=== PATIENT | female | born 1985 | race Caucasian/White ===

== ENCOUNTER 2020-12-29 04:56 | Inpatient (IN) | payer BC, OTHER ==
[2020-12-29] MEDS ORDERED: METHYLERGONOVINE 0.2 MG/ML 1 ML AMP IM PRN (05:52)
[2020-12-29] MEDS ORDERED: TERBUTALINE 1 MG/ML VIAL SQ PRN (05:52)
[2020-12-29] MEDS ORDERED: OXYTOCIN 10 UNIT/ML 1 ML VIAL IM PRN (05:52)
[2020-12-29] MEDS ORDERED: LIDOCAINE 0.5% (PF) 5 MG/ML (50 ML SDV) SQ PRN (05:52)
[2020-12-29] MEDS ORDERED: CARBOPROST TROMETHAMINE 250 MCG/ML 1 ML AMP IM PRN (05:52)
[2020-12-29] MEDS ORDERED: OXYTOCIN 30 UNITS/500 ML NS 30 UNIT in SALINE 1 500ML.BAG IV SCH (06:00)
[2020-12-29 06:02] LABS: Basophils % (A) 0 %; Eosinophils # (A) 0.1 k/uL (0-0.7); Eosinophils % (A) 1 %; HCT 37.2 % (34.0-46.0); HGB 12.5 gm/dL (11.4-16.0); Lymphocytes % (A) 17 %; MCH 30.5 pg (25.0-35.0); MCHC 33.7 g/dL (31.0-37.0); MCV 90.5 fL (80.0-100.0); Mean Platelet Volume 7.8; Monocytes # (A) 0.5 k/uL (0-1.0); Monocytes % (A) 4 %; Neutrophils # (A) 8.7 k/uL (1.3-7.7); Neutrophils % (A) 76 %; Platelet Count 234 k/uL (150-450); RBC 4.11 m/uL (3.80-5.40); WBC 11.5 k/uL (3.8-10.6)
[2020-12-29] MEDS: LACTATED RINGERS 1,000 ML IV SCH (06:05)
--- NOTE | 2020-12-29 07:49 | P.HPOB ---
History of Present Illness H&P Date: 12/29/20 Chief Complaint: My water broke at 4:00 this morning This is a 35-year-old female 2 para 0010 EDC 12/22/2020 at 41 weeks gestation who presented with spontaneous amniorrhexis, clear fluid, at 4:00 this morning. Fetus is been active throughout the . She is having mild irregular uterine contractions. Past medical history is unremarkable. Past surgical history negative. Current medications vitamins daily, baby aspirin daily. ALLERGIES none known. Family history significant for thyroid cancer. Reproductive history missed AB 2006. Social history patient is , she is never been a smoker, she is employed, she denies alcohol or drug use. history significant for blood type B negative, rubella status immune. VDRL testing, urine culture, hepatitis B surface antigen, HIV testing, gonorrhea and chlamydia cultures, group B strep cultures all negative. One-hour Glucola 133. On exam patient is 5 foot 4 inches, 170 pounds, blood pressure 126/78, vital signs are stable and she is afebrile. The general physical exam is within normal limits. The cervix is 2 cm dilated, 60-70% effaced, -2 station, vertex presentation. Artificial amniorrhexis of a fore bag reveals clear fluid. heart rate is reassuring. Irregular mild contractions are noted. Impression: 41 week intrauterine , early labor, advanced maternal age, all signs reassuring. Plan: Oxytocin per hospital protocol. Close maternal and surveillance. Analgesic options reviewed. Anticipate normal spontaneous vaginal delivery. Review of Systems Constitutional: Reports as per HPI Past Medical History Past Medical History: No Reported History History of Any Multi-Drug Resistant Organisms: None Reported Past Surgical History: No Surgical Hx Reported Past Anesthesia/Blood Transfusion Reactions: No Reported Reaction Smoking Status: Never smoker Past Alcohol Use History: None Reported Past Drug Use History: None Reported Medications and Allergies Home Medications Medication Instructions Recorded Confirmed Type Aspirin 1 tab PO ONCE 12/29/20 12/29/20 History Pnv No.95/Ferrous Fum/Folic AC 1 tab PO ONCE 12/29/20 12/29/20 History [ Multivitamin Tablet] Allergies Allergy/AdvReac Type Severity Reaction Status Date / Time No Known Allergies Allergy Verified 12/29/20 04:59 Exam Vital Signs Temp Pulse Resp BP Pulse Ox 12/29/20 05:52 98.5 F 89 16 126/78 99 12/29/20 04:59 98.5 F 89 16 126/78 99 Intake and Output 12/28/20 12/29/20 12/29/20 22:59 06:59 14:59 Other: Weight 77.111 kg See dictation under HPI please Results Result Diagrams: 12/29/20 05:45 Abnormal Lab Results - Last 24 Hours (Table) 12/29/20 Range/Units 05:45 WBC 11.5 H (3.8-10.6) k/uL Neutrophils # 8.7 H (1.3-7.7) k/uL Assessment and Plan Assessment: 41 week intrauterine , spontaneous labor. All signs reassuring. Advanced maternal age. Plan: Oxytocin per hospital protocol. Most maternal and surveillance. Analgesic options reviewed. Anticipate normal spontaneous vaginal delivery. Time with Patient: Less than 30
[2020-12-29] MEDS ORDERED: PENICILLIN G POTASSIUM 5,000,000 UNIT in DEXTROSE 5% IN WATER 100 ML IVPB ONE ×2 (16:00)
[2020-12-29] MEDS ORDERED: CITRIC ACID-SODIUM CITRATE 15 ML CUP PO ONE (19:51)
[2020-12-29] MEDS ORDERED: NALBUPHINE 10 MG/ML (1 ML AMP) ONE (20:00)
[2020-12-29] MEDS ORDERED: KETOROLAC 15 MG/ML 1 ML VIAL ONE (20:00)
[2020-12-29] MEDS ORDERED: MORPHINE SULFATE (PF) 0.3 MG/0.3 ML SYR ONE (20:00)
[2020-12-29] MEDS ORDERED: ONDANSETRON 4 MG/2 ML VIAL ONE (20:00)
[2020-12-29] MEDS ORDERED: OXYTOCIN 30 UNITS/500 ML NS BAG IV ONE (20:00)
[2020-12-29] MEDS ORDERED: PHENYLEPHRINE-0.9% NACL SYG 1,000 MCG/10 ML SYRINGE ONE (20:00)
[2020-12-29] MEDS ORDERED: NALOXONE 0.4 MG/ML 1 ML VIAL IV PRN (20:31)
[2020-12-29] MEDS ORDERED: diphenhydrAMINE 50 MG/ML 1 ML VIAL IVP PRN ×3 (20:31→21:07)
[2020-12-29] MEDS ORDERED: KETOROLAC 15 MG/ML 1 ML VIAL IVP PRN (20:31)
[2020-12-29] MEDS ORDERED: NALBUPHINE 10 MG/ML (1 ML AMP) IV PRN (20:31)
--- NOTE | 2020-12-29 21:06 | P.OP ---
Date of Procedure: 12/29/20 Preoperative Diagnosis: 41 week intrauterine , advanced maternal age, arrest of dilatation and descent Postoperative Diagnosis: Same, left occiput transverse, nuchal cord 3, normal tubes and ovaries bilaterally, liveborn male infant Procedure(s) Performed: Primary low transverse section Implants: Anesthesia: spinal Surgeon: Cydney Dumont Youth Liaison Officer #1: Aron Peck Estimated Blood Loss (ml): 486 IV fluids (ml): 750 Urine output (ml): 200 Pathology: none sent Condition: stable Disposition: PACU Description of Procedure: At 41 weeks gestation, patient presented with spontaneous amniorrhexis. Oxytocin was started and titrated per hospital protocol. Patient became 6 cm dilated and had no further cervical change management coordinator the course of 4 hours. Decision was made to proceed with primary low transverse section. Bicitra was given, antibiotics given, abdomen and vagina prepped and draped in the usual sterile fashion. Patient is brought back to the operating room where a spinal analgesia with Duramorph is placed without difficulty per the anesthesia staff. She's placed in the dorsal supine position, Martinez catheter to direct drainage. Left lateral uterine displacement The appropriate timeout is performed to assure proper patient and procedural identification. Analgesia is checked and noted to be adequate. A low transverse skin incision is made in this is carried down through the subcutaneous tissue which is approximately 2 cm deep. Fascia is isolated and scored, extended bilaterally with curved Gottlieb scissors. Peritoneum is next i dentified and incised, there is no bowel or bladder involvement. Bladder blade is placed over the dome of the bladder and at all times the bladder is Well from the operative field to avoid bladder and/or ureteral injury. A low transverse uterine incision is made in this is extended with blunt dissection. 's head is noted to be in the left occiput transverse position. It is elevated from the pelvis. There is a nuchal cord 3 that is reduced. Patient is officially delivered of a liveborn male at 2017 hours. Umbilical cord is doubly clamped and ligated, he is handed to waiting nurses for evaluation where scores of 8 and 9 at one and 5 minutes respectively are given. Placenta is delivered manually, it is inspected and noted to be fully intact with trivascular cord. Uterus is then is externalized and massaged. It is swept clean with a sterile sponge to avoid any retained products of conception. Uterus is closed in a two-step fashion, first layer running locking with 0 Vicryl, second layer imbricated with 0 Vicryl. Bilateral tubes and ovaries appear normal to inspection. Hemostasis is excellent. Abdomen is suctioned with suction on guard posterior to the uterus. Uterus is placed gently back into the abdominal cavity. Bilateral gutters are inspected and cleaned. Uterine incision is clean and dry. Peritoneum was allowed close by secondary intention. The fascia is closed in a running stitch of 0 Vicryl suture with over ligation in the midline. Subcutaneous tissue is irrigated, clean and dry. It is reapproximated with 2-0 Vicryl in a running stitch. 4-0 undyed Monocryl issues for final skin closure in a subcuticular fashion. Steri-Strips and Mastisol are applied to the wound. All sponge needle and enhancement counts are correct. Martinez is noted to be draining clear urine. Patient is brought back to the recovery room in excellent condition with stable vital signs including blood pressure 100/52, pulse 82, 100% O2 saturation. She is requesting circumcision for her son Uriel.
[2020-12-29] MEDS ORDERED: SIMETHICONE 80 MG CHEWABLE PO PRN (21:07)
[2020-12-29] MEDS ORDERED: ONDANSETRON 4 MG/2 ML VIAL IVP PRN (21:07)
[2020-12-29] MEDS ORDERED: ZOLPIDEM 5 MG TAB PO PRN (21:07)
[2020-12-29] MEDS ORDERED: METOCLOPRAMIDE 5 MG/ML 2 ML VIAL IVP PRN (21:07)
[2020-12-29] MEDS ORDERED: HYDROmorphone 2 MG TAB PO PRN (21:07)
[2020-12-29] MEDS ORDERED: diphenhydrAMINE 50 MG CAP PO PRN (21:07)
[2020-12-29] MEDS ORDERED: diphenhydrAMINE 25 MG CAP PO PRN (21:07)
[2020-12-29] MEDS ORDERED: Rhogam IMMUNE GLOBULIN 1,500 UNIT/1 ML IM ONE (22:46)
[2020-12-30] MEDS: LACTATED RINGERS 1,000 ML IV SCH ×3 (02:34→04:21)
[2020-12-30] MEDS: PENICILLIN G POTASSIUM 2,500,000 UNIT in DEXTROSE 5% IN WATER 100 ML IVPB SCH ×2 (02:35)
[2020-12-30] MEDS: ACETAMINOPHEN TAB 500 MG TAB PO SCH ×5 (04:02→20:44)
[2020-12-30] MEDS: IBUPROFEN 600 MG TAB PO SCH ×3 (04:02→17:13)
[2020-12-30] MEDS: SENNOSIDES-DOCUSATE SODIUM 1 EACH TAB PO SCH ×2 (07:58→20:44)
--- NOTE | 2020-12-30 08:07 | P.PN ---
Subjective Progress Note Date: 12/30/20 Principal diagnosis: Doing well postoperative day #1 Slept well. Positive flatus. No complaints. Objective - Vital Signs Vital signs: Vital Signs Temp 98.5 F 12/30/20 04:00 Pulse 93 12/30/20 04:00 Resp 17 12/30/20 04:00 BP 110/72 12/30/20 04:00 Pulse Ox 99 12/30/20 04:00 Intake & Output 12/29/20 12/30/20 12/30/20 18:59 06:59 18:59 Intake Total 200 Output Total 972 Balance -772 Intake: Oral 200 Output: Estimated Blood Loss 972 Other: # Voids 2 - Constitutional General appearance: Present: average body habitus, cooperative - EENT Eyes: Present: PERRLA ENT: Present: hearing grossly normal - Respiratory Respiratory: bilateral: CTA - Cardiovascular Rhythm: regular - Integumentary Integumentary Comment(s): Incision clean and dry, intact, Steri-Strips applied. Fundus firm, midline, symmetric, 18 week size Integumentary: Present: normal - Neurologic Neurologic: Present: CNII-XII intact - Musculoskeletal Musculoskeletal: Present: gait normal, strength equal bilaterally - Psychiatric Psychiatric: Present: A&O x's 3, appropriate affect, intact judgment & insight - Labs CBC & Chem 7: 12/29/20 05:45 Assessment and Plan Assessment: Doing well postoperative day #1 Plan: Circumcision performed on her . Continue postoperative care. Advanced diet and activity. Likely discharge home tomorrow. Time with Patient: Less than 30
[2020-12-30 08:09] LABS: Basophils % (A) 0 %; Eosinophils % (A) 0 %; HCT 29.4 % (34.0-46.0); Lymphocytes % (A) 6 %; MCH 30.3 pg (25.0-35.0); MCHC 33.4 g/dL (31.0-37.0); MCV 90.6 fL (80.0-100.0); Mean Platelet Volume 7.8; Monocytes # (A) 0.6 k/uL (0-1.0); Monocytes % (A) 3 %; Neutrophils # (A) 15.3 k/uL (1.3-7.7); Neutrophils % (A) 90 %; Platelet Count 254 k/uL (150-450); RBC 3.25 m/uL (3.80-5.40); RDW 15.6 % (11.5-15.5)
[2020-12-30 08:19] LABS: HGB 9.8 gm/dL (11.4-16.0)
--- NOTE | 2020-12-30 09:33 | P.PN ---
Progress Note - Text Progress Note Date: 12/30/20 Ms. Johnston is a 35-year-old female had a history of under spinal an algesia with Astramorph 300 g for postop pain. Today patient is comfortable sitting in her bed. She has mild itching over her extremities. Per patient is tolerable. Today patient rated her pain level 2-3 out of 10 in severity. Denied any fever, drowsiness, confusion. Denied any weakness, tingling sensation in her lower extremities. Denied any bowel or bladder problems. Moving all extremities without any difficulty. Able to walk without any difficulties. Vitals: Hemodynamically stable Continue oral pain medication as per primary team.
[2020-12-31] MEDS: IBUPROFEN 600 MG TAB PO SCH ×3 (01:46→12:07)
[2020-12-31] MEDS: ACETAMINOPHEN TAB 500 MG TAB PO SCH ×2 (06:50→07:02)
--- NOTE | 2020-12-31 07:48 | P.DS ---
Providers Date of admission: 12/29/20 05:16 Expected date of discharge: 12/31/20 Attending physician: Cydney Dumont Primary care physician: Stated None Hospital Course: This is a 35-year-old female 2 para 0010 EDC 12/22/2020 who presented at 41 weeks gestation with spontaneous amniorrhexis, clear fluid. Group B strep cultures negative, rubella status immune, blood type B-. Please see dictated history and physical for details. Patient underwent arrest of dilatation and descent at 6 cm dilated. She went on to deliver via low transverse section a liveborn male infant with scores of 8 and 9 at one and 5 minutes respectively. was found to be in the left occiput transverse position with a nuchal cord 3. Surgery was otherwise unremarkable, estimated blood loss 486 mL's. Infant weighed 7 lbs. 14 oz. or 3580 g. Please see dictated operative note for details. This morning the patient is doing very well. She is voiding, ambulating, passing flatus without difficulty. Vital signs are stable and she has remained afebrile. Incision is clean and dry, intact, Steri-Strips applied. Fundus is firm, midline, symmetric, 18 week size. Extremities reveal trace edema. Circumcision on the has been performed. Patient is judged to be in very good condition for discharge home. I have written a prescription for a double electric breast pump and instructions have been reviewed. Patient will use [id number] Advil or Aleve, or Motrin as needed for pain. I've asked her to call me with any fevers shakes or chills, foul smelling or copious lochia, with the passage of large blood clots, or indeed with any difficulties or concerns, or any pain not alleviated by [id number] products. She will continue taking her vitamin daily. We have reviewed options for contraception and we will discuss this further in the office. Assessment: Doing well second day Patient Condition at Discharge: Good Plan - Discharge Summary Discharge Rx Participant: No New Discharge Prescriptions: No Action Pnv No.95/Ferrous Fum/Folic AC [ Multivitamin Tablet] 1 tab PO ONCE Aspirin 1 tab PO ONCE Discharge Medication List Aspirin 1 tab PO ONCE 12/29/20 [History] Pnv No.95/Ferrous Fum/Folic AC [ Multivitamin Tablet] 1 tab PO ONCE 12/29/20 [History] Follow up Appointment(s)/Referral(s): Cydney Dumont MD [STAFF PHYSICIAN] - 2 Weeks Discharge Disposition: HOME SELF-CARE
[2020-12-31 08:45] VITALS: BP 113/68; PULSE 116; RESP 16; TEMP 98.3
[2020-12-31] MEDS: SENNOSIDES-DOCUSATE SODIUM 1 EACH TAB PO SCH (08:46)
== END 2020-12-31 12:00 | disposition home or self-care (01) | DRG 788 ==
LOC: FBPOP 04:56 → 4FBP 05:16
PROVIDERS: ADMIT Obstetrics & Gynecology; ATTEND Obstetrics & Gynecology
PROC: 10907ZC Drainage of Amniotic Fluid, Therapeutic from Products of Conception, Via Natural or Artificial Opening (ICD-10-PCS; 2020-12-29)
PROC: 4A0HX4Z Measurement of Products of Conception, Cardiac Electrical Activity, External Approach (ICD-10-PCS; 2020-12-29)
PROC: 3E033VJ Introduction of Other Hormone into Peripheral Vein, Percutaneous Approach (ICD-10-PCS; 2020-12-29)
PROC: 10D00Z1 Extraction of Products of Conception, Low, Open Approach (ICD-10-PCS; principal; 2020-12-29 20:00)
DX: O62.0 Primary inadequate contractions (principal); O48.0 Post-term pregnancy; O69.81X0 Labor and delivery complicated by cord around neck, without compression, not applicable or unspecified; Z37.0 Single live birth; Z3A.41 41 weeks gestation of pregnancy; Z79.82 Long term (current) use of aspirin; Z87.59 Personal history of other complications of pregnancy, childbirth and the puerperium
CPT/HCPCS: 59025; 84112; 85025; 85461; 86850; 86900; 86901; 99213

== ENCOUNTER 2022-01-02 09:52 | Emergency (ER) | payer BC, OTHER ==
[2022-01-02 09:57] VITALS: TEMP 98.1
[2022-01-02] MEDS ORDERED: Rhogam IMMUNE GLOBULIN 1,500 UNIT/1 ML IM ONE (10:38)
--- NOTE | 2022-01-02 10:56 | ED ---
General Adult HPI - General Chief complaint: Vaginal Bleeding Stated complaint: Preg/Spotting blood Time Seen by Provider: 01/02/22 10:15 Source: patient, RN notes reviewed Mode of arrival: ambulatory Limitations: no limitations - History of Present Illness Initial comments: Patient is a 36 year old female presenting to the ER with a chief complaint of v aginal spotting. She first noticed it this morning around 7 am. She describes it as light brown blood with light cramping in her lower abdomen. She denies fevers, dysuria or bowel changes. She regularly visits her OB, Dr. Dumont, and her 8 week ultrasound was normal. She is not on any medications regularly but is taking a vitamin. - Related Data Home Medications Medication Instructions Recorded Confirmed Aspirin 1 tab PO ONCE 12/29/20 12/29/20 Pnv No.95/Ferrous Fum/Folic AC 1 tab PO ONCE 12/29/20 12/29/20 [ Multivitamin Tablet] Allergies Allergy/AdvReac Type Severity Reaction Status Date / Time No Known Allergies Allergy Verified 01/02/22 09:58 Review of Systems ROS Statement: Those systems with pertinent positive or pertinent negative responses have been documented in the HPI. ROS Other: All systems not noted in ROS Statement are negative. Past Medical History Past Medical History: No Reported History History of Any Multi-Drug Resistant Organisms: None Reported Past Surgical History: No Surgical Hx Reported Past Anesthesia/Blood Transfusion Reactions: No Reported Reaction Smoking Status: Never smoker Past Alcohol Use History: None Reported Past Drug Use History: None Reported General Exam Limitations: no limitations General appearance: alert, in no apparent distress Head exam: Present: atraumatic, normocephalic, normal inspection Eye exam: Present: normal appearance, PERRL, EOMI. Absent: scleral icterus, conjunctival injection, periorbital swelling ENT exam: Present: normal exam, mucous membranes moist Respiratory exam: Present: normal lung sounds bilaterally. Absent: respiratory distress, wheezes, rales, rhonchi, stridor Cardiovascular Exam: Present: regular rate, normal rhythm, normal heart sounds. Absent: systolic murmur, diastolic murmur, rubs, gallop, clicks GI/Abdominal exam: Present: soft, normal bowel sounds. Absent: distended, tenderness, guarding, rebound, rigid Extremities exam: Present: normal inspection, full ROM, normal capillary refill. Absent: tenderness, pedal edema, joint swelling, calf tenderness Back exam: Present: normal inspection Neurological exam: Present: alert, oriented X3, CN II-XII intact Psychiatric exam: Present: normal affect, normal mood Skin exam: Present: warm, dry, intact, normal color. Absent: rash Course Vital Signs 01/02/22 09:53 Temperature 98.1 F Pulse Rate 83 Respiratory 18 Rate Blood Pressure 110/72 O2 Sat by Pulse 99 Oximetry Medical Decision Making - Medical Decision Making 36-year-old female presented from for vaginal bleeding early . Ultrasound shows viable IUP 13 weeks 6 days patient does have moderate subchorionic hemorrhage causing her spotting at this time. Patient is B- blood type patient did receive RhoGAM after long discussion with the patient. Patient will be discharged stable condition with follow-up her STEEL ESTIMATOR tomorrow. - Lab Data Result diagrams: 01/02/22 10:55 01/02/22 10:55 Lab Results 01/02/22 01/02/22 01/02/22 Range/Units 10:55 10:55 10:55 WBC 7.6 (3.8-10.6) k/uL RBC 4.02 (3.80-5.40) m/uL Hgb 12.6 (11.4-16.0) gm/dL Hct 35.9 (34.0-46.0) % MCV 89.1 (80.0-100.0) fL MCH 31.2 (25.0-35.0) pg MCHC 35.0 (31.0-37.0) g/dL RDW 13.2 (11.5-15.5) % Plt Count 227 (150-450) k/uL MPV 7.0 Neutrophils % 74 % Lymphocytes % 19 % Monocytes % 5 % Eosinophils % 1 % Basophils % 0 % Neutrophils # 5.6 (1.3-7.7) k/uL Lymphocytes # 1.4 (1.0-4.8) k/uL Monocytes # 0.4 (0-1.0) k/uL Eosinophils # 0.1 (0-0.7) k/uL Basophils # 0.0 (0-0.2) k/uL Sodium 134 L (137-145) mmol/L Potassium 3.7 (3.5-5.1) mmol/L Chloride 103 (98-107) mmol/L Carbon Dioxide 23 (22-30) mmol/L Anion Gap 8 mmol/L BUN 10 (7-17) mg/dL Creatinine 0.49 L (0.52-1.04) mg/dL Est GFR (CKD-EPI)AfAm >90 (>60 ml/min/1.73 sqM) Est GFR (CKD-EPI)NonAf >90 (>60 ml/min/1.73 sqM) Glucose 81 (74-99) mg/dL Calcium 8.6 (8.4-10.2) mg/dL Urine Color Urine Appearance (Clear) Urine pH (5.0-8.0) Ur Specific [place] (1.001-1.035) Urine Protein (Negative) Urine Glucose (UA) (Negative) Urine Ketones (Negative) Urine Blood (Negative) Urine Nitrite (Negative) Urine Bilirubin (Negative) Urine Urobilinogen (<2.0) mg/dL Ur Leukocyte Esterase (Negative) Urine RBC (0-5) /hpf Urine WBC (0-5) /hpf Ur Squamous Epith Cells (0-4) /hpf Urine Bacteria (None) /hpf Urine Mucus (None) /hpf Blood Type B Negative Blood Type Recheck B Neg Bld Type Recheck Status No Antibody Screen NEGATIVE 01/02/22 Range/Units 12:32 WBC (3.8-10.6) k/uL RBC (3.80-5.40) m/uL Hgb (11.4-16.0) gm/dL Hct (34.0-46.0) % MCV (80.0-100.0) fL MCH (25.0-35.0) pg MCHC (31.0-37.0) g/dL RDW (11.5-15.5) % Plt Count (150-450) k/uL MPV Neutrophils % % Lymphocytes % % Monocytes % % Eosinophils % % Basophils % % Neutrophils # (1.3-7.7) k/uL Lymphocytes # (1.0-4.8) k/uL Monocytes # (0-1.0) k/uL Eosinophils # (0-0.7) k/uL Basophils # (0-0.2) k/uL Sodium (137-145) mmol/L Potassium (3.5-5.1) mmol/L Chloride (98-107) mmol/L Carbon Dioxide (22-30) mmol/L Anion Gap mmol/L BUN (7-17) mg/dL Creatinine (0.52-1.04) mg/dL Est GFR (CKD-EPI)AfAm (>60 ml/min/1.73 sqM) Est GFR (CKD-EPI)NonAf (>60 ml/min/1.73 sqM) Glucose (74-99) mg/dL Calcium (8.4-10.2) mg/dL Urine Color Colorless Urine Appearance Clear (Clear) Urine pH 7.5 (5.0-8.0) Ur Specific [place] 1.007 (1.001-1.035) Urine Protein Negative (Negative) Urine Glucose (UA) Negative (Negative) Urine Ketones Negative (Negative) Urine Blood Small H (Negative) Urine Nitrite Negative (Negative) Urine Bilirubin Negative (Negative) Urine Urobilinogen <2.0 (<2.0) mg/dL Ur Leukocyte Esterase Negative (Negative) Urine RBC 1 (0-5) /hpf Urine WBC 1 (0-5) /hpf Ur Squamous Epith Cells 3 (0-4) /hpf Urine Bacteria Rare H (None) /hpf Urine Mucus Rare H (None) /hpf Blood Type Blood Type Recheck Bld Type Recheck Status Antibody Screen Disposition Clinical Impression: Subchorionic hemorrhage, Disposition: HOME SELF-CARE Condition: Stable Instructions (If sedation given, give patient instructions): Subchorionic Hemorrhage (ED) Additional Instructions: Please return to the Emergency Department if symptoms worsen or any other concerns. Is patient prescribed a controlled substance at d/c from ED?: No Referrals: Morelia Perez MD [Primary Care Provider] - 1-2 days Time of Disposition: 12:05
[2022-01-02 11:13] LABS: Basophils % (A) 0 %; Eosinophils # (A) 0.1 k/uL (0-0.7); Eosinophils % (A) 1 %; HCT 35.9 % (34.0-46.0); HGB 12.6 gm/dL (11.4-16.0); Lymphocytes # (A) 1.4 k/uL (1.0-4.8); Lymphocytes % (A) 19 %; MCH 31.2 pg (25.0-35.0); MCV 89.1 fL (80.0-100.0); Monocytes # (A) 0.4 k/uL (0-1.0); Monocytes % (A) 5 %; Neutrophils # (A) 5.6 k/uL (1.3-7.7); Neutrophils % (A) 74 %; Platelet Count 227 k/uL (150-450); RBC 4.02 m/uL (3.80-5.40); RDW 13.2 % (11.5-15.5); WBC 7.6 k/uL (3.8-10.6)
[2022-01-02 11:27] LABS: African American GFR (CKD) >90 (>60 ml/min/1.73 sqM); Anion Gap 8 mmol/L; Blood Urea Nitrogen 10 mg/dL (7-17); Calcium 8.6 mg/dL (8.4-10.2); Carbon Dioxide 23 mmol/L (22-30); Chloride 103 mmol/L (98-107); Glucose 81 mg/dL (74-99); Non-African American GFR(CKD) >90 (>60 ml/min/1.73 sqM); Potassium 3.7 mmol/L (3.5-5.1); Sodium 134 mmol/L (137-145)
--- NOTE | 2022-01-02 12:10 | US ---
EXAMINATION TYPE: Transabdominal DATE OF EXAM: 01/02/2022 11:25 AM COMPARISON: NONE CLINICAL HISTORY: pain, bleeding. Cramping, light bleeding. Hx 1 C section. EXAM PERFORMED: Transabdominal (TA) EXAM MEASUREMENTS: GESTATIONAL AGE / DATING Physician Established: (13 weeks/4 days) EDC: 07/06/2022 Dates by LMP: (13 weeks/4 days) EDC: 07/06/2022 Dates by First Scan: This is first scan at this facility. Dates by Current Scan for: (13 weeks/6 days) EDC: 07/04/2022 MATERNAL ANATOMY Uterus: 15.9 x 12.2 x 7.5 cm. Right Ovary: 3.5 x 2.6 x 2.1 cm. Area of mixed echogenicity and peripheral vascularity seen as mentio atul below: 1.7 x 2.2 x 2.2 cm. Left Ovary: 3.3 x 2.2 x 1.4 cm Appears wnl. Post CDS / Adnexa: Appear wnl Presence of free fluid: No Presence of corpus luteal cyst: Area of mixed echogenicity and peripheral vascularity seen in the rig ht ovary: 1.7 x 2.2 x 2.2 cm. Presence of subchorionic bleed: Complex area seen adjacent to the gestational sac: 7.3 x 6.5 x 0.9 cm . GESTATION / SURVEY CRL: 7.76 cm (13 weeks/6 days) Yolk Sac (normal less than 6mm): Not seen Heart Rate: 154 bpm Rhythm: Normal IUP: Viable IUP Nuchal Translucency 10-14wks (normal less than 3mm): 2 mm. Age Appropriate Anatomy Cord Insertion: Limited visibility Limbs: Visualized Calvarium: Visualized Date of LMP: 09/29/2021 Beta HcG (if available): Not available IMPRESSION: 1. Single live intrauterine gestation with ultrasound age 13 weeks 6 days. 2. Moderate subchorionic hemorrhage, short-term follow-up imaging and clinical follow-up recommended .
[2022-01-02 13:02] LABS: Appearance,Urine Clear (Clear); Bacteria,Urine Rare /hpf; Bilirubin,Urine Negative (Negative); Blood,Urine Small (Negative); Color,Urine Colorless; Glucose,Urine (UA) Negative (Negative); Ketones,Urine Negative (Negative); Leukocyte Esterase,Urine Negative (Negative); Mucus,Urine Rare /hpf; Nitrite,Urine Negative (Negative); PH, Urine 7.5 (5.0-8.0); Protein,Urine Negative (Negative); RBC,Urine 1 /hpf (0-5); Specific Gravity,Urine 1.007 (1.001-1.035); Squamous Epithelial Cell,Urine 3 /hpf (0-4); Urobilinogen,Urine <2.0 mg/dL (<2.0); WBC,Urine 1 /hpf (0-5)
[2022-01-02 13:25] VITALS: BP 121/77; PULSE 75; RESP 16
== END 2022-01-02 13:17 | disposition home or self-care (01) ==
LOC: EC 09:52
DX: O20.9 Hemorrhage in early pregnancy, unspecified (principal); Z3A.13 13 weeks gestation of pregnancy
CPT/HCPCS: 36415; 86900; 86901; 80048; 85025; 86850; 81001; 76813; 76801; 99284; 96372; J2790

== ENCOUNTER 2022-07-06 09:06 | Inpatient (IN) | payer OTHER ==
[2022-07-08 15:57] VITALS: BMI 27.8
[2022-07-11] MEDS ORDERED: miSOPROStoL 200 MCG TAB PO PRN (10:34)
[2022-07-11] MEDS ORDERED: CARBOPROST TROMETHAMINE 250 MCG/ML 1 ML AMP IM PRN (10:34)
[2022-07-11] MEDS ORDERED: TRANEXAMIC ACID IN NACL,ISO-OS 1,000 MG in EMPTY BAG 1 BAG IV PRN (10:34)
[2022-07-11] MEDS ORDERED: CITRIC ACID-SODIUM CITRATE 15 ML CUP PO ONE (10:34)
[2022-07-11] MEDS ORDERED: LACTATED RINGERS 1,000 ML IV ONE (10:34)
[2022-07-11] MEDS ORDERED: METHYLERGONOVINE 0.2 MG/ML 1 ML AMP IM PRN (10:34)
[2022-07-11] MEDS ORDERED: OXYTOCIN 10 UNIT/ML 1 ML VIAL IM PRN (10:34)
[2022-07-11] MEDS ORDERED: OXYTOCIN 30 UNITS/500 ML NS 30 UNIT in SALINE 1 500ML.BAG IV SCH (10:45)
[2022-07-11 10:47] LABS: Basophils % (A) 0 %; Eosinophils % (A) 0 %; HCT 40.9 % (34.0-46.0); HGB 13.6 gm/dL (11.4-16.0); Lymphocytes # (A) 1.2 k/uL (1.0-4.8); Lymphocytes % (A) 13 %; MCH 30.7 pg (25.0-35.0); MCHC 33.2 g/dL (31.0-37.0); MCV 92.4 fL (80.0-100.0); Monocytes # (A) 0.3 k/uL (0-1.0); Monocytes % (A) 3 %; Neutrophils # (A) 7.8 k/uL (1.3-7.7); Neutrophils % (A) 82 %; Platelet Count 135 k/uL (150-450); RBC 4.43 m/uL (3.80-5.40); RDW 14.5 % (11.5-15.5); WBC 9.5 k/uL (3.8-10.6)
[2022-07-11] MEDS ORDERED: OXYTOCIN 30 UNITS/500 ML NS BAG IV ONE (12:30)
[2022-07-11] MEDS ORDERED: NALBUPHINE 10 MG/ML (10 ML MDV) ONE (12:30)
[2022-07-11] MEDS ORDERED: ePHEDrine 50 MG/ML 1 ML VIAL ONE (12:30)
[2022-07-11] MEDS ORDERED: ONDANSETRON 4 MG/2 ML VIAL ONE (12:30)
[2022-07-11] MEDS ORDERED: KETOROLAC 15 MG/ML 1 ML VIAL ONE (12:30)
[2022-07-11] MEDS ORDERED: MORPHINE SULFATE (PF) 0.3 MG/0.3 ML SYR ONE (12:30)
[2022-07-11] MEDS ORDERED: diphenhydrAMINE 50 MG/ML 1 ML VIAL IVP PRN ×3 (13:04→13:31)
[2022-07-11] MEDS ORDERED: NALOXONE 0.4 MG/ML 1 ML VIAL IV PRN (13:04)
[2022-07-11] MEDS ORDERED: ONDANSETRON 4 MG/2 ML VIAL IVP PRN (13:04)
[2022-07-11] MEDS ORDERED: MORPHINE SULFATE 2 MG/ML SYRINGE IVP PRN (13:04)
--- NOTE | 2022-07-11 13:26 | P.HPOB ---
History of Present Illness H&P Date: 07/11/22 Chief Complaint: Here for repeat low transverse section This is a 37-year-old 3 para 1011 EDC 07/06/2014 at 40-5/7 weeks' gestation who initially was contemplating , however now postdates is requesting repeat low transverse section, declining tubal ligation. Fetus is been active throughout the . Past medical history is negative. Past surgical history section 2020. Current medications baby aspirin daily, vitamin daily. ALLERGIES none known. Family history significant for thyroid cancer. Social history patient is , she has never been a smoker, she denies alcohol or drug use. history is significant for blood type B-, broke and received. Antibody screen, Pap smear, urine culture, grade strep cultures, HIV testing, hepatitis B surface antigen all negative. One-hour Glucola 100. On exam patient is 5 foot 5 inches, 168 pounds, blood pressure 110/68. The general physical exam is within normal limits. Fundus is obviously gravid with a full term , vertex presentation. Extremities are negative for edema. Chest is clear in all rodriguez. heart rate is consistent with reactive NST. Cervix is long thick and closed. Impression: 40-5/7 weeks intrauterine , previous section, requesting low transverse section repeat. Declining tubal ligation. Plan: For repeat low transverse section. Risks, benefits and alternatives all discussed. Antibiotics given. Tubal ligation offered and declined. Review of Systems Constitutional: Reports as per HPI Past Medical History Past Medical History: No Reported History History of Any Multi-Drug Resistant Organisms: None Reported Past Surgical History: Section Past Anesthesia/Blood Transfusion Reactions: No Reported Reaction Past Psychological History: No Psychological Hx Reported Smoking Status: Never smoker Past Alcohol Use History: None Reported Past Drug Use History: None Reported - Past Family History Mother Family Medical History: Thyroid Disorder Additional Family Medical History / Comment(s): thyroid CA Medications and Allergies Home Medications Medication Instructions Recorded Confirmed Type Aspirin 1 tab PO ONCE 12/29/20 07/11/22 History Pnv No.95/Ferrous Fum/Folic AC 1 tab PO ONCE 12/29/20 07/11/22 History [ Multivitamin Tablet] Allergies Allergy/AdvReac Type Severity Reaction Status Date / Time No Known Allergies Allergy Verified 07/11/22 10:48 Exam Vital Signs Temp Pulse Resp BP Pulse Ox 07/11/22 10:49 97.7 F 94 16 110/68 99 Intake and Output 07/10/22 07/11/22 07/11/22 22:59 06:59 14:59 Other: Weight 75.75 kg See dictation under HPI please Results Result Diagrams: 07/11/22 10:30 Abnormal Lab Results - Last 24 Hours (Table) 07/11/22 Range/Units 10:30 Plt Count 135 L (150-450) k/uL Neutrophils # 7.8 H (1.3-7.7) k/uL Assessment and Plan Assessment: 40-5/7 week intrauterine , here for repeat low transverse section, all signs reassuring. Declining tubal ligation, declining . Plan: For repeat low transverse section. All risks, benefits, alternatives discussed. Tubal ligation declined. Antibiotics given. Time with Patient: Less than 30
[2022-07-11] MEDS ORDERED: ZOLPIDEM 5 MG TAB PO PRN (13:31)
[2022-07-11] MEDS ORDERED: diphenhydrAMINE 50 MG CAP PO PRN (13:31)
[2022-07-11] MEDS ORDERED: METOCLOPRAMIDE 5 MG/ML 2 ML VIAL IVP PRN (13:31)
[2022-07-11] MEDS ORDERED: diphenhydrAMINE 25 MG CAP PO PRN (13:31)
--- NOTE | 2022-07-11 13:31 | P.OP ---
Date of Procedure: 07/11/22 Preoperative Diagnosis: 40-5/7 weeks intrauterine , here for repeat low transverse section, declining . Postoperative Diagnosis: Liveborn male infant, nuchal cord 2. Procedure(s) Performed: Repeat low transverse section Anesthesia: spinal Surgeon: Cydney Dumont Filter Press Tender #1: Aron Peck Estimated Blood Loss (ml): 875 IV fluids (ml): 1,400 Urine output (ml): 150 Pathology: none sent Condition: stable Disposition: PACU Operative Findings: Liveborn male , nuchal cord 2. Description of Procedure: Patient is brought to the operating suite where a spinal with Duramorph is administered without difficulty. Antibiotics are given. Abdomen is prepped and draped in usual sterile fashion. Martinez catheter to direct drainage. The appropriate timeout is performed to assure proper patient and procedural identification. Analgesia is checked and noted to be adequate. A repeat low transverse skin incision is made in this is carried down through the subcutaneous tissue to the fascia. Fascia is isolated, scored, extended bilaterally with curved Gottlieb scissors. Peritoneum is next identified and incised, there is no bowel or bladder involvement. Bladder blade is placed over the dome of the bladder. A repeat low transverse uterine incision is made. This is carried down, artificial amniorrhexis reveals clear fluid, the incision is extended with blunt dissection. The infant's head is delivered in the occiput anterior position. There is a nuchal cord 2 that was reduced. Patient is officially delivered of a liveborn male at 1247 hours. Umbilical cord is doubly clamped and ligated, he is handed to waiting nurses for evaluation where scores of 9 and 9 at one and 5 minutes respectively are given. Placenta delivers manually, it is inspected and noted to be intact with trivascular cord at 1248 hours. The uterus is externalized and swept clean with a sterile sponge to avoid any retained products of conception. The uterus is closed in a two-step fashion, first layer running locking with 0 Vicryl, second layer imbricated with same. There is bleeding noted in the left lateral aspect of the incision, 2 additional [id number] sutures are given for good response. Surgical's no is then placed. Abdomen is suctioned with suction on guard posterior to the uterus. Uterus is gently placed back into the abdominal cavity. Bilateral gutters are inspected and cleaned. The incision is noted to be clean and dry. Peritoneum is allowed to close by secondary intention. Fascia is closed in a running locking stitch using 0 Vicryl suture with over ligation in the midline. Subcutaneous tissue is irrigated, clean and dry, reapproximated with 2-0 Vicryl. 4-0 repeat is used in a subcuticular manner for final skin closure. Steri- Strips and Mastisol are applied to the wound. Uterus is massaged for a small amount of blood. Martinez is noted to be draining clear urine. Patient is brought back to recovery room in very good condition with stable vital signs including blood pressure 104/60, pulse 78, 100% O2 saturation. She is requesting circumcision for her infant son. Estimated blood loss 875 mL, fluid replacement 1400 mL crystalloid, 150 mL urine clear in the Martinez upon completion of procedure.
[2022-07-11] MEDS: LACTATED RINGERS 1,000 ML IV SCH ×2 (14:55→19:49)
[2022-07-11] MEDS: ACETAMINOPHEN TAB 500 MG TAB PO SCH (15:00)
[2022-07-11] MEDS: SENNOSIDES-DOCUSATE SODIUM 1 EACH TAB PO SCH (19:48)
[2022-07-11] MEDS: IBUPROFEN 600 MG TAB PO SCH (19:48)
[2022-07-12] MEDS: ACETAMINOPHEN TAB 500 MG TAB PO SCH ×4 (01:00→15:13)
[2022-07-12] MEDS: LACTATED RINGERS 1,000 ML IV SCH (01:01)
[2022-07-12] MEDS: IBUPROFEN 600 MG TAB PO SCH ×3 (01:21→13:06)
[2022-07-12] MEDS: SENNOSIDES-DOCUSATE SODIUM 1 EACH TAB PO SCH (07:20)
[2022-07-12 07:52] VITALS: RESP 16
[2022-07-12 08:03] LABS: Basophils % (A) 0 %; Eosinophils % (A) 0 %; HCT 33.8 % (34.0-46.0); HGB 11.1 gm/dL (11.4-16.0); Lymphocytes # (A) 0.7 k/uL (1.0-4.8); Lymphocytes % (A) 8 %; MCH 31.4 pg (25.0-35.0); MCHC 32.7 g/dL (31.0-37.0); MCV 96.1 fL (80.0-100.0); Mean Platelet Volume 8.2; Monocytes # (A) 0.3 k/uL (0-1.0); Monocytes % (A) 3 %; Neutrophils # (A) 8.6 k/uL (1.3-7.7); Neutrophils % (A) 89 %; Platelet Count 150 k/uL (150-450); RBC 3.52 m/uL (3.80-5.40); RDW 14.4 % (11.5-15.5); WBC 9.7 k/uL (3.8-10.6)
--- NOTE | 2022-07-12 08:09 | P.PN ---
Subjective Progress Note Date: 07/12/22 Principal diagnosis: Postoperative day #1 . Minimal vaginal drainage. Pain well tolerated. Positive flatus. Objective - Vital Signs Vital signs: Vital Signs Temp 98.4 F 07/12/22 07:50 Pulse 69 07/12/22 07:50 Resp 16 07/12/22 07:50 BP 94/58 07/12/22 07:50 Pulse Ox 100 07/12/22 04:00 FiO2 Intake & Output 07/11/22 07/12/22 07/12/22 18:59 06:59 18:59 Output Total 1015 1400 Balance -1015 -1400 Weight 75.75 kg Output: Urine 1400 Uretheral (Martinez) 400 Estimated Blood Loss 875 Output, Quantitative 140 Blood Loss Other: Voiding Method Indwelling Catheter - Constitutional General appearance: Present: average body habitus, cooperative - EENT Eyes: Present: PERRLA ENT: Present: hearing grossly normal - Respiratory Respiratory: bilateral: CTA - Cardiovascular Rhythm: regular - Gastrointestinal Gastrointestinal Comment(s): Incision clean and dry, intact with Steri-Strips applied. Fundus firm, midline, symmetric, 18 week size. General gastrointestinal: Present: normal bowel sounds - Integumentary Integumentary: Present: normal - Neurologic Neurologic: Present: CNII-XII intact - Musculoskeletal Musculoskeletal: Present: gait normal, strength equal bilaterally - Psychiatric Psychiatric: Present: A&O x's 3, appropriate affect, intact judgment & insight - Labs CBC & Chem 7: 07/12/22 07:35 Labs: Abnormal Lab Results - Last 24 Hours (Table) 07/11/22 07/12/22 Range/Units 10:30 07:35 RBC 3.52 L (3.80-5.40) m/uL Hgb 11.1 L (11.4-16.0) gm/dL Hct 33.8 L (34.0-46.0) % Plt Count 135 L (150-450) k/uL Neutrophils # 7.8 H 8.6 H (1.3-7.7) k/uL Lymphocytes # 0.7 L (1.0-4.8) k/uL Assessment and Plan Assessment: Doing well first postoperative day Plan: Continue postoperative care. Circumcision of if he is transferred back from [facility] today. Advance diet and activity, anticipate discharge home tomorrow. Time with Patient: Less than 30
--- NOTE | 2022-07-12 09:31 | P.PN ---
Progress Note - Text Progress Note Date: 07/12/22 (647) Anesthesia Postop day 1 Subjective: Status Post section with Duramorph. Patient seen and examined. Doing well without complaint. VAS 4 out of 10. No nausea vomiting or pruritus. Afebrile. Gross lower extremity strength intact. Without apparent anesthetic complications. Objective: Vital signs reviewed Heart: Regular Rate Lungs: Good chest excursion Abdomen: Appears nondistended Assessment: Status post with Duramorph postop day 1 Plan: Continue current care with your medical management.
[2022-07-12 11:07] VITALS: BP 113/63; PULSE 93; TEMP 97.5
--- NOTE | 2022-07-12 19:57 | DS ---
DISCHARGE SUMMARY ADMISSION DIAGNOSIS: 40 and 5/7th weeks' intrauterine , for repeat section, declining option for vaginal after . DISCHARGE DIAGNOSES: Postoperative day #1 status post section, transferred to [facility] to rule out tracheal atresia. The patient is requesting early discharge home, felt to be stable for same. HOSPITAL COURSE: This is a 37-year-old, 3, para 1-0-1-1, who presented at 40 and 5/7th weeks initially planning , but with unfavorable cervix, instead choosing repeat low- transverse section. Her was otherwise unremarkable, please see my dictated History and Physical for details. She underwent a repeat low-transverse section, giving to a live-born male with scores of 9 and 9 at one and five minutes respectively. He weighed 8 pounds 15 ounces or 4050 g and did have a nuchal cord x2. She did well intraoperatively, please see my dictated Delivery Note for details. Academic Advisor was concerned about a stridor that was auscultated as the was breathing. Therefore, he transferred the infant to [facility] to rule out tracheal atresia. Because the is not with the patient, because she is , and because she is clinically stable, she is requesting discharge home, although she is only 24 hours postoperative. Her fundus is firm and in the midline, symmetric, and 18-week size. The extremities are negative for edema. The incision is clean and dry, intact, Steri-Strips applied, no erythema or drainage. Breasts are engorged, she has a breast pump at home. She is doing well on Motrin for pain relief alternating with Tylenol. The patient will follow up with me in the office in 2 weeks. I have reminded her no intercourse, tampons, or douching. She will contemplate her options for contraception, and we will discuss this further in the office. She will call with any redness or drainage of the incision, any pain not alleviated by [id number] products, with any concerns, questions, or issues, or as needed. MMODL / IJN: [id number] /
== END 2022-07-12 15:18 | disposition home or self-care (01) | DRG 788 ==
LOC: 4FBP 07-11 10:11
PROVIDERS: ADMIT Obstetrics & Gynecology; ATTEND Obstetrics & Gynecology
PROC: 10D00Z1 Extraction of Products of Conception, Low, Open Approach (ICD-10-PCS; principal; 2022-07-11 12:00)
DX: O34.211 Maternal care for low transverse scar from previous cesarean delivery (principal); O48.0 Post-term pregnancy; O69.81X0 Labor and delivery complicated by cord around neck, without compression, not applicable or unspecified; Z37.0 Single live birth; Z28.310 Unvaccinated for COVID-19; Z3A.40 40 weeks gestation of pregnancy; Z79.82 Long term (current) use of aspirin; Z79.899 Other long term (current) drug therapy
CPT/HCPCS: 85025; 86850; 86900; 86901